=== PATIENT | female | born 1995 | race Caucasian/White ===

== ENCOUNTER → 2019-04-13 17:07 | Outpatient (CLI) | payer OTHER, MEDICAID, SELFPAY | DX: Z23 Encounter for immunization (principal) | CPT/HCPCS: 90471; 90686 ==

== ENCOUNTER → 2019-04-29 09:36 | Outpatient (CLI) | payer OTHER, MEDICAID, SELFPAY ==
[2019-04-29 10:42] LABS: Hemoglobin 13.9 g/dL (12.0-16.0); Mean Corpuscular HGB Conc 33.8 % (30-36); Mean Corpuscular Hemoglobin 30.4 PG (26-34); Mean Corpuscular Volume 89.9 fL (80-100); Platelet Count 225 X10^3/uL (150-400); Red Blood Cell Count 4.56 X10^6/uL (4.0-5.2); Red Cell Distribution Width 13.3 % (11.6-14.8); White Blood Cell Count 4.4 X10^3/uL (4.5-11.0)
[2019-04-29 11:12] LABS: Alanine Aminotransferase 25 IU/L (<35); Albumin 4.6 g/dL (3.5-5.0); Albumin Globulin Ratio 1.7 (1.0-2.8); Alkaline Phosphatase 61 U/L (38-126); Aspartate Aminotransferase 25 IU/L (14-36); BUN Creatinine Ratio 15.7 (6-22); Bilirubin Total 0.8 mg/dL (0.2-1.3); Blood Urea Nitrogen 11 mg/dL (7-17); Calcium 9.9 mg/dL (8.4-10.2); Carbon Dioxide 24 mmol/L (22-32); Chloride 110 mmol/L (98-107); Cholesterol 161 mg/dL (140-199); Estimated Glomerular Filt Rate > 60.0 mL/min (>60); Globulin 2.7 g/dL (1.7-4.1); Glucose 97 mg/dL (70-100); HDL Cholesterol 61 mg/dL (40-60); HEMOLYSIS < 15 (0-50); LDL Cholesterol Calculated 87 mg/dL (<100); Sodium 142 mmol/L (137-145); Total Protein 7.3 g/dL (6.3-8.2); Triglycerides 63 mg/dL (35-150)
[2019-04-29 11:13] LABS: Potassium 5.4 mmol/L (3.4-5.1)
== END ==
PROVIDERS: PCP Nurse Practitioner Family; Visit Provider Nurse Practitioner Family
DX: Z00.00 Encounter for general adult medical examination without abnormal findings (principal); Z13.6 Encounter for screening for cardiovascular disorders
CPT/HCPCS: 36415; 80053; 80061; 85027

== ENCOUNTER → 2019-08-01 12:35 | Outpatient (CLI) | payer OTHER, MEDICAID, SELFPAY ==
[2019-08-13 08:16] LABS: Rubella Antibody IgG 5.3 IU/mL (>15)
== END ==
PROVIDERS: PCP Nurse Practitioner Family; Referring Provider Obstetrics & Gynecology; Visit Provider Obstetrics & Gynecology
DX: Z00.00 Encounter for general adult medical examination without abnormal findings (principal)
CPT/HCPCS: 36415; 86762; 86765; 86787

== ENCOUNTER → 2019-12-23 09:45 | Outpatient (CLI) | payer OTHER, MEDICAID, SELFPAY ==
[2019-12-25 08:17] LABS: COVID19 Sendout Not Detected (Not Detect)
== END ==
PROVIDERS: PCP Nurse Practitioner Family; Visit Provider Physician Assistant
DX: Z11.59 Encounter for screening for other viral diseases (principal); J02.9 Acute pharyngitis, unspecified; R05 Cough
CPT/HCPCS: 87635

== ENCOUNTER → 2020-03-02 09:39 | Outpatient (CLI) | payer OTHER, MEDICAID, SELFPAY ==
[2020-03-03 14:36] LABS: COVID19 Sendout Not Detected (Not Detect)
== END ==
PROVIDERS: PCP Nurse Practitioner Family; Visit Provider Physician Assistant
DX: Z11.59 Encounter for screening for other viral diseases (principal); R06.02 Shortness of breath
CPT/HCPCS: 87635

== ENCOUNTER → 2020-03-02 09:55 | Outpatient (CLI) | payer OTHER, MEDICAID, SELFPAY ==
--- NOTE | 2020-03-02 10:00 | DI.RAD.S_ITS ---
PROCEDURE: XR CHEST 2V INDICATIONS: Short of breath, [place], recent cold TECHNIQUE: 2 views of the chest were acquired. COMPARISON: None. FINDINGS: Surgical changes and devices: None. Lungs and pleura: Lungs are clear. No pleural effusions or pneumothorax. Mediastinum: Mediastinal contours are normal. Heart size is normal. Bones and chest wall: No suspicious bony abnormalities. Soft tissues appear unremarkable. IMPRESSION: Normal chest, without infiltrates. Dictated by: Elier Singh M.D. on 03/02/2020 at 9:12 Approved by: Elier Singh M.D. on 03/02/2020 at 9:14
== END ==
PROVIDERS: PCP Nurse Practitioner Family; Referring Provider Physician Assistant; Visit Provider Physician Assistant
DX: R06.02 Shortness of breath (principal)
CPT/HCPCS: 71046; 87635

== ENCOUNTER → 2020-03-08 07:46 | Outpatient (CLI) | payer OTHER, MEDICAID, SELFPAY | PROVIDERS: PCP Nurse Practitioner Family; Referring Provider Internal Medicine; Visit Provider Internal Medicine | DX: Z23 Encounter for immunization (principal) | CPT/HCPCS: 90471; 90686 ==

== ENCOUNTER → 2020-03-11 09:10 | Outpatient (CLI) | payer OTHER, MEDICAID, SELFPAY ==
[2020-03-11 09:52] LABS: Hematocrit 39.8 % (36-46); Hemoglobin 13.4 g/dL (12.0-16.0); Mean Corpuscular HGB Conc 33.6 % (30-36); Mean Corpuscular Hemoglobin 30.6 PG (26-34); Platelet Count 219 X10^3/uL (150-400); Red Blood Cell Count 4.37 X10^6/uL (4.0-5.2); Red Cell Distribution Width 13.3 % (11.6-14.8); White Blood Cell Count 4.1 X10^3/uL (4.5-11.0)
[2020-03-11 10:17] LABS: Alanine Aminotransferase 15 IU/L (<35); Albumin 4.3 g/dL (3.5-5.0); Albumin Globulin Ratio 1.4 (1.0-2.8); Alkaline Phosphatase 61 U/L (38-126); Aspartate Aminotransferase 26 IU/L (14-36); BUN Creatinine Ratio 18.8 (6-22); Bilirubin Total 1.1 mg/dL (0.2-1.3); Blood Urea Nitrogen 12 mg/dL (7-17); Calcium 9.1 mg/dL (8.4-10.2); Carbon Dioxide 26 mmol/L (22-32); Chloride 108 mmol/L (98-107); Estimated Glomerular Filt Rate > 60.0 mL/min (>60); Globulin 3.1 g/dL (1.7-4.1); Glucose 93 mg/dL (70-100); HEMOLYSIS < 15 (0-50); Potassium 4.1 mmol/L (3.4-5.1); Sodium 138 mmol/L (137-145); Total Protein 7.4 g/dL (6.3-8.2)
== END ==
PROVIDERS: PCP Nurse Practitioner Family; Referring Provider Nurse Practitioner Family; Visit Provider Nurse Practitioner Family
DX: R06.02 Shortness of breath (principal)
CPT/HCPCS: 36415; 80053; 85027

== ENCOUNTER → 2020-04-07 09:43 | Outpatient (CLI) | payer OTHER, MEDICAID, SELFPAY ==
[2020-04-07 10:46] LABS: COVID19 -Nasal RAPID Negative (Negative)
== END ==
PROVIDERS: PCP Nurse Practitioner Family; Referring Provider Nurse Practitioner Family; Visit Provider Nurse Practitioner Family
DX: R06.02 Shortness of breath (principal)
CPT/HCPCS: 87635

== ENCOUNTER → 2020-04-08 06:45 | Outpatient (CLI) | payer OTHER, MEDICAID, SELFPAY ==
--- NOTE | 2020-04-13 09:10 | PM.PFT.1 ---
Pulmonary Function Test Referral & Results Date Patient Seen: 04/08/20 Requesting provider: Fran Chanel Results: The spirometry demonstrates an FVC of 4.03 L which is 109% of predicted. The FEV1 was measured at 3.40 L which is 108% of predicted. The FEV1/FVC ratio was 84 which is 99% of predicted. Following the administration of bronchodilator there was a 14% improvement in FEF 25-75%. Lung volumes show an SVC of 3.99 L which is 109% of predicted. The diffusing capacity was measured at 24.52 which is 107% of predicted. The maximum voluntary ventilation was normal Interpretation: This study demonstrates normal pulmonary function
== END ==
PROVIDERS: PCP Nurse Practitioner Family; Referring Provider Nurse Practitioner Family; Visit Provider Nurse Practitioner Family
DX: R06.02 Shortness of breath (principal); Z87.891 Personal history of nicotine dependence
CPT/HCPCS: 94060; 94726; 94729

== ENCOUNTER → 2020-04-12 11:45 | Outpatient (ROUT) | payer OTHER, MEDICAID, SELFPAY ==
[2020-04-12 12:04] LABS: COVID19 -Nasal RAPID Negative (Negative)
== END ==
PROVIDERS: PCP Nurse Practitioner Family; Visit Provider Nurse Practitioner
DX: Z11.59 Encounter for screening for other viral diseases (principal)
CPT/HCPCS: 87635

== ENCOUNTER → 2020-04-19 08:16 | Outpatient (CLI) | payer OTHER, MEDICAID, SELFPAY ==
[2020-04-19 08:51] LABS: COVID19 -Nasal RAPID POSITIVE (Negative)
== END ==
PROVIDERS: PCP Nurse Practitioner Family; Visit Provider Physician Assistant
DX: U07.1 COVID-19 (principal)
CPT/HCPCS: 87635

== ENCOUNTER → 2020-05-23 12:51 | Outpatient (CLI) | payer OTHER, MEDICAID, SELFPAY ==
--- NOTE | 2020-05-23 14:54 | DI.ECHO.S_ITS ---
[place] [facility]---------+ [facility] +---------+ : : [address] : : : : [id number] : : : : Phone: [phone]+ Echocardiogram Report + + :Name: BRONSON BECKFORD Study Date: 05/23/2020 Height: 63 in : :[facility] Weight: 130 lb : : Gender: Female BSA: 1.6 m2 : :: 1995 Age: 25 yrs BP: 124/92 mmHg: :Reason For Study: SOB WITH EXERTION, PFTS NORMAL : :Ordering Physician: DILEEP, : :GUS Performed By: Giovanna Gonzalez : :Referring: GUS FALK : + + Interpretation Summary The ejection fraction is estimated to be 60-65%. There is no significant valvular heart disease. Procedure: A two-dimensional transthoracic echocardiogram with color flow and Doppler was performed. The study quality was technically adequate. There is no prior echocardiogram noted for this patient. The patient was in sinus rhythm with heart rates between 74-96 bpm during the exam. Left Ventricle: The left ventricle is normal in size and wall thickness. The ejection fraction is estimated to be 60-65%. Left ventricular wall motion is normal. Diastolic parameters suggest probable normal left ventricular diastolic function and normal filling pressures. Right Ventricle: The right ventricle is normal in size and function. Atria: The left atrial size is normal. Right atrial size is normal. There is no Doppler evidence for an interatrial shunt. Mitral Valve: The mitral valve is normal in structure and function. There is trace mitral regurgitation. Aortic Valve: The aortic valve is trileaflet. The aortic valve opens well. There is no aortic valve stenosis. No aortic regurgitation is present. Tricuspid Valve: The tricuspid valve is normal in structure and function. There is trace tricuspid regurgitation. Pulmonary artery pressures cannot be estimated because of the lack of a measurable TR jet velocity but the IVC suggests a CVP of around 3 mmHg. Pulmonic Valve: The pulmonic valve leaflets are thin and pliable; valve motion is normal. There is no pulmonic valvular regurgitation. Great Vessels: The aortic root is normal size. The dimensions of the ascending aorta are normal. The IVC is of normal diameter and collapses greater than 50% with a sniff. This suggests a low right atrial pressure of 3 mm Hg. Pericardium/ Pleura There is no pericardial effusion. There is no pleural effusion. MMode/2D Measurements & Calculations LVIDd: 4.1 cm LVOT diam: 2.0 cm LVIDs: 3.0 cm Ao root diam: 2.7 cm FS: 26.9 % asc Aorta Diam: 2.7 cm EPSS: 0.64 cm Ao Arch Diam (Prox Trans): 2.0 cm IVSd: 0.68 cm LVPWd: 0.67 cm LV marte. diameter/BSA (cm/m^2): 2.5 LV sys. diameter/BSA (cm/m^2): 1.9 LA A2 area: 14.0 cm2 RA long axis: 3.8 cm LA A4 area: 14.1 cm2 RA area: 11.1 cm2 LA length (vol): 4.5 cm RA vol: 27.6 ml LA vol: 37.4 ml RA : 17.1 ml/m2 LA vol index: 23.2 ml/m2 IVC diam: 0.80 cm RVD1 (basal): 3.6 cm TAPSE: 2.1 cm Doppler Measurements & Calculations Ao V2 max: 109.5 cm/sec LVOT Max Benjamin: 91.4 cm/sec Ao V2 mean: 77.0 cm/sec LV V1 max P.3 mmHg Ao max P.8 mmHg LV V1 VTI: 20.3 cm Ao mean P.7 mmHg SUSHILA(I,D): 2.6 cm2 Ao V2 VTI: 24.6 cm SUSHILA(V,D): 2.6 cm2 sev ratio: 0.82 SUSHILA indexed to BSA (cm^2/m^2): 1.6 MV E max benjamin: 93.4 cm/sec PA V2 max: 64.4 cm/sec MV A max benjamin: 77.2 cm/sec PA V2 mean: 44.7 cm/sec MV E/A: 1.2 PA mean P.90 mmHg Med Peak E' Benjamin: 13.0 cm/sec PA pr(Accel): 13.9 mmHg E/E' med: 7.2 Lat Peak E' Benjamin: 14.3 cm/sec E/E' lat: 6.5 E/e' average: 6.8 MV dec time: 0.15 sec SV([facility]): 62.8 ml Reading Physician:01:18 PM
== END ==
PROVIDERS: PCP Nurse Practitioner Family; Referring Provider Nurse Practitioner Family; Visit Provider Nurse Practitioner Family
DX: R06.02 Shortness of breath (principal)
CPT/HCPCS: 93306

== ENCOUNTER → 2020-06-06 14:16 | Outpatient (CLI) | payer OTHER, MEDICAID, SELFPAY ==
--- NOTE | 2020-07-01 16:48 | PM.CARDMON.1 ---
Manager Simulation Report Referral & Results Date Patient Seen: 06/06/20 Requesting provider: Fran Chanel Indication: Shortness of breath Duration of monitoring (days): 14 Diary information: There were 6 patient triggered events and 6 patient diary entries. All of these events were associated with sinus rhythm only Data: Minimum heart rate identified is 55 beats per minute at 09:01 on 01/09/2021 Maximum heart rate was 180 beats per minute at 16:29 on 06/18/2020 Less than 1 % of identified beats rather ventricular, or supraventricular ectopic in origin There was 1 run of nonsustained monomorphic ventricular tachycardia lasting 5 beats at a rate of 140 beats per minute. Impression: 14 day cardiac rehab nurse showing only 1 run very brief nonsustained ventricular tachycardia otherwise entirely normal No etiology for symptoms shortness of breath identified on this study
== END ==
PROVIDERS: PCP Nurse Practitioner Family; Referring Provider Nurse Practitioner Family; Visit Provider Nurse Practitioner Family
DX: R06.02 Shortness of breath (principal); R07.89 Other chest pain
CPT/HCPCS: 93246; 93248

== ENCOUNTER → 2020-07-18 15:04 | Outpatient (CLI) | payer OTHER, MEDICAID, SELFPAY ==
[2020-07-18 16:33] LABS: Progesterone, Total 9.12 ng/mL
== END ==
PROVIDERS: PCP Nurse Practitioner Family; Referring Provider Obstetrics & Gynecology; Visit Provider Obstetrics & Gynecology
DX: N97.0 Female infertility associated with anovulation (principal)
CPT/HCPCS: 36415; 84144

== ENCOUNTER → 2020-08-31 14:44 | Outpatient (CLI) | payer OTHER, MEDICAID, SELFPAY ==
[2020-08-31 17:00] LABS: Thyroid Stimulating Hormone 0.977 uIU/mL (0.47-4.68)
== END ==
PROVIDERS: PCP Nurse Practitioner Family; Referring Provider Obstetrics & Gynecology; Visit Provider Obstetrics & Gynecology
DX: N97.9 Female infertility, unspecified (principal)
CPT/HCPCS: 36415; 83001; 83002; 84439; 84443

== ENCOUNTER → 2020-09-16 11:50 | Outpatient (CLI) | payer OTHER, MEDICAID, SELFPAY ==
[2020-09-16 13:05] LABS: HCG Quantitative /Beta subunit < 2.4 mIU/mL
== END ==
PROVIDERS: PCP Nurse Practitioner Family; Referring Provider Obstetrics & Gynecology; Visit Provider Obstetrics & Gynecology
DX: N93.9 Abnormal uterine and vaginal bleeding, unspecified (principal)
CPT/HCPCS: 36415; 84702

== ENCOUNTER → 2021-03-02 | Outpatient (CLI) | payer OTHER, MEDICAID, SELFPAY | PROVIDERS: PCP Nurse Practitioner Family; Referring Provider Internal Medicine; Visit Provider Internal Medicine | DX: Z23 Encounter for immunization (principal) | CPT/HCPCS: 90471; 90686 ==

== ENCOUNTER → 2021-04-27 07:14 | Outpatient (CLI) | payer OTHER, MEDICAID, SELFPAY ==
--- NOTE | 2021-04-27 07:14 | DI.US.S_ITS ---
ULTRASOUND OF RIGHT AXILLA: 04/27/2021 CLINICAL: Palpable right axilla lump. No prior exams were available for comparison. Real-time ultrasound of the right axilla was performed on the area of interest. No discrete cystic or solid mass lesion identified in the area of palpable abnormality. No suspicious enlarged lymph nodes were seen sonographically in the right axilla. IMPRESSION: NEGATIVE There is no sonographic evidence of malignancy. There is no abnormality seen in the right axilla to correspond with the palpable abnormality, however, clinical followup is recommended. This exam was interpreted at Station ID: [id number]. Electronically Signed By: Damion Crain M.D. ddp/:04/27/2021 08:12:58 letter sent: Clinical Evaluation Ultrasound BI-RADS: 1 Negative
== END ==
PROVIDERS: PCP Nurse Practitioner Family; Referring Provider Nurse Practitioner Family; Visit Provider Nurse Practitioner Family
DX: R22.30 Localized swelling, mass and lump, unspecified upper limb (principal)
CPT/HCPCS: 76882

== ENCOUNTER → 2021-05-12 11:03 | Outpatient (CLI) | payer OTHER, MEDICAID, SELFPAY ==
--- NOTE | 2021-05-12 11:04 | DI.CT.S_ITS ---
PROCEDURE: CT UE RT W CON INDICATIONS: Right mass muscle post axillary fold (latissimus? near attachment) TECHNIQUE: After the administration of intravenous contrast, 3 mm axial sections acquired of the right shoulder, with oblique coronal and oblique sagittal reformats. COMPARISON: [facility], , AXILLARY ONLY RT, 04/27/2021, 7:43. FINDINGS: Image quality: Excellent. Bones: No acute fracture or dislocation. The glenohumeral and acromioclavicular joints are normally aligned. The visualized ribs are intact. Soft tissues: A skin marker is seen at the posterior axilla overlying the teres major and latissimus dorsi musculature. No enhancing soft tissue mass is seen. No definite circumscribed lipoma is identified. No bulky axillary lymphadenopathy. The musculature surrounding the shoulder is normal in bulk. The tendons, ligaments, articular cartilages, and labrum are not well visualized on standard unenhanced CT. The included portions of the right lung are clear. IMPRESSION: No enhancing mass or suspicious abnormality is seen at the area of interest in the posterior axillary region. No axillary lymphadenopathy. Dictated by: Lucius Morton M.D. on 05/12/2021 at 11:45 Approved by: Lucius Morton M.D. on 05/12/2021 at 11:51
== END ==
PROVIDERS: PCP Nurse Practitioner Family; Referring Provider Specialist; Visit Provider Specialist
DX: M62.89 Other specified disorders of muscle (principal)
CPT/HCPCS: 73201

== ENCOUNTER → 2021-05-31 09:12 | Outpatient (CLI) | payer OTHER, MEDICAID, SELFPAY ==
[2021-05-31 10:11] LABS: Hemoglobin 12.7 g/dL (12.0-16.0); Mean Corpuscular HGB Conc 33.5 % (30-36); Mean Corpuscular Hemoglobin 29.7 PG (26-34); Mean Corpuscular Volume 88.5 fL (80-100); Platelet Count 230 X10^3/uL (150-400); Red Cell Distribution Width 14.2 % (11.6-14.8); White Blood Cell Count 3.9 X10^3/uL (4.5-11.0)
[2021-05-31 11:07] LABS: Alanine Aminotransferase 15 IU/L (<35); Albumin 4.3 g/dL (3.5-5.0); Albumin Globulin Ratio 1.4 (1.0-2.8); Alkaline Phosphatase 53 U/L (38-126); Aspartate Aminotransferase 21 IU/L (14-36); BUN Creatinine Ratio 21.2 (6-22); Bilirubin Total 0.6 mg/dL (0.2-1.3); Blood Urea Nitrogen 14 mg/dL (7-17); Calcium 9.4 mg/dL (8.4-10.2); Carbon Dioxide 26 mmol/L (22-32); Chloride 107 mmol/L (98-107); Cholesterol 157 mg/dL (140-199); Estimated Glomerular Filt Rate > 60.0 mL/min (>60); Glucose 95 mg/dL (70-100); HDL Cholesterol 67 mg/dL (40-60); HEMOLYSIS < 15 (0-50); LDL Cholesterol Calculated 81 mg/dL (<100); Potassium 4.8 mmol/L (3.4-5.1); Sodium 138 mmol/L (137-145); Total Protein 7.3 g/dL (6.3-8.2); Triglycerides 45 mg/dL (35-150)
[2021-05-31 11:35] LABS: TSH w/ Reflex to FT4 1.02 uIU/mL (0.47-4.68)
== END ==
PROVIDERS: PCP Nurse Practitioner Family; Referring Provider Nurse Practitioner Family; Visit Provider Nurse Practitioner Family
DX: F32.1 Major depressive disorder, single episode, moderate (principal); Z00.00 Encounter for general adult medical examination without abnormal findings; Z13.6 Encounter for screening for cardiovascular disorders
CPT/HCPCS: 36415; 80053; 80061; 84443; 85027

== ENCOUNTER → 2021-06-01 07:18 | Outpatient (CLI) | payer OTHER, MEDICAID, SELFPAY ==
--- NOTE | 2021-06-01 07:20 | DI.MRI.S_ITS ---
PROCEDURE: MR CHEST WO/W CON INDICATIONS: Right lateral axillary mass TECHNIQUE: Axial 2-D FLASH in- and [id number], axial breath-hold T2 FSE, axial STIR FSE. Optional contrast may be given, followed by axial 2-D FLASH with fat saturation acquired over the lesion of concern. COMPARISON: [facility], US, US AXILLARY ONLY RT, 04/27/2021, 7:43. FINDINGS: Image quality: Excellent. Region of interest: No abnormal subcutaneous or intramuscular cysts or masses in the axillary area indicated. Subtle enhancement and edema of the dermal layer anterior to the marker, potentially from shaving. There is no suspicious adenopathy. Bones: Nearby osseous structures demonstrate normal overall marrow signal. IMPRESSION: No MR evidence of suspicious finding in the right axilla. Dictated by: aBrbara Ellsworth M.D. on 06/01/2021 at 11:43 Approved by: Barbara Ellsworth M.D. on 06/01/2021 at 11:54
== END ==
PROVIDERS: PCP Nurse Practitioner Family; Referring Provider Surgery; Visit Provider Surgery
DX: M62.89 Other specified disorders of muscle (principal)
CPT/HCPCS: 71552; A9579

== ENCOUNTER → 2021-06-28 09:16 | Outpatient (CLI) | payer OTHER, MEDICAID, SELFPAY ==
[2021-06-28 09:38] LABS: COVID19 -Nasal RAPID Negative (Negative)
== END ==
PROVIDERS: PCP Nurse Practitioner Family; Visit Provider Surgery
DX: Z01.812 Encounter for preprocedural laboratory examination (principal); Z20.822 Contact with and (suspected) exposure to COVID-19
CPT/HCPCS: 87635; C9803

== ENCOUNTER 2021-06-29 08:20 | Day surgery (SDC) | payer OTHER, MEDICAID, SELFPAY ==
[2021-06-28 10:22] VITALS: BMI 25.4
[2021-06-29] VITALS (8 sets, daily range): BP systolic 109–124; BP diastolic 65–81; PULSE 80–96; RESP 16; TEMP 36.1–36.7; O2SAT 98–100; BMI 25.4
--- NOTE | 2021-06-29 | PATH_ITS ---
[facility] Accession Number: [id number] No. of containers..01 Tissue . 01 Material submitted: . axilla - RIGHT AXILLARY CONTENTS . 02 Diagnosis: Right Axillary Contents, Excision: Mature adipose tissue. Please see comment. No evidence of atypia or malignancy. MRV 07/04/2021 0953 Local . 02 Comment: The clinical history of a palpable mass is noted. The morphologic appearance could be compatible with a benign lipoma in the appropriate clinical and radiologic setting. There is no evidence of ductal or lobular breast tissue in the sections examined. . 02 Electronically signed: . Jo-Ann Babb MD, Pathologist NPI- [id number] . 01 Gross description: . Received in formalin, labeled with the patient's name and right axillary contents is a 3-gram, 2.4 x 2.0 x 0.5 cm partially encapsulated fragment of yellow-veronica lobulated fatty soft tissue, inked green, homogeneously fatty surface, sectioned and entirely submitted. . Summary of Sections: A1-A2. Four pieces each. ([id number]) /MRV 06/30/2021 1424 Local . 02 Pathologist provided ICD-10: R22.31 . 02 CPT . 328256 Performed at: 01 [facility] [address], [place], [place] [id number] MD Damion Lewis MD Phone: [phone] Performed at: 02 [facility] [address] [place], [place] [id number] MD Jo-Ann Babb MD Phone: [phone]
[2021-06-29] MEDS: ACETAMINOPHEN 325 MG TABLET 650 MG PO (08:46)
[2021-06-29] MEDS: LACTATED RINGERS 1,000 ML 42 ML IV (09:04)
--- NOTE | 2021-06-29 09:28 | P.HP_ITS ---
History of Present Illness History of Present Illness Date Patient Seen: 06/29/21 Time Patient Seen: 09:28 Chief complaint: [facility] Narrative: 26-year-old woman who noticed a right axillary mass about a year ago. She has been worked up and had an ultrasound, MRI and CT scan all of which showed no evidence of a mass. The mass is definitely palpable and has gotten bigger recently. It is occasionally tender. Patient History Medical History (Updated 06/22/21 @ 08:35 by Sallie Mendosa RN) Headache Shortness of breath Surgical History (Updated 06/22/21 @ 08:35 by Sallie Mendosa RN) No history of previous surgery [place] teeth extracted Family & Social History Family History Father Hypertension Mother Hypertension Social History: household members significant other Tobacco & Substance use: Smoking Status Former smoker alcohol intake current alcohol intake frequency a few times a month Substance Use Type does not use Meds Home Medications and Allergies Home Medications Medication Instructions Recorded Confirmed Type fluticasone propionate 44 1 puff INHALATION BID #10.6 gram 03/10/20 06/29/21 Rx mcg/actuation HFA aerosol inhaler (Flovent HFA) montelukast 10 mg tablet 10 mg PO DAILY #60 tab 03/10/20 06/22/21 Rx albuterol sulfate 90 mcg/actuation 2 puff INHALATION Q4-6H PRN #8.5 10/31/20 06/29/21 Rx aerosol inhaler gram Allergies Allergy/AdvReac Type Severity Reaction Status Date / Time No Known Drug Allergies Allergy Verified 06/06/21 15:39 Exam Vital Signs (past 8 hours): - 06/29/21 08:47 Temperature 98.1 F Pulse Rate 96 H Respiratory Rate 16 Blood Pressure 124/81 Pulse Oximetry 98 Oxygen Delivery Method Room Air Narrative Exam Narrative: Palpable right axillary mass roughly 4 cm incised Assessment & Plan Assessment and plan (1) Mass of right axilla: Status: Acute Plan Mass of unclear significance in the right axilla. It causes her anxiety. This could be lymphadenopathy or possibly the dermal conditions such as hidradenitis. Will proceed with exploration in the operating room and excision of the mass. She understands the risks and benefits and wishes to proceed. COVID-19 COVID-19 status: Negative Result date/Date tested (Pos, Neg/Pending): 06/29/21 Time Spent With Patient Critical Care time: I spent a total of [] minutes of critical care time on this patient's care today; this time is exclusive of procedural time.
[2021-06-29] MEDS: CEFAZOLIN 2 GM/20 ML SYRINGE IV (10:07)
--- NOTE | 2021-06-29 10:28 | SUR.OPER ---
Addendum entered by Thuy Schumacher R.N. 06/29/21 10:31: Patient unable to remove 3 piercings from her right ear. Original Note: Supine on padded OR bed, head on pillow, right arm secured on padded arm boards at <90 degrees abduction, Right arm on large padded arm board extension and in control of the surgeon. legs uncrossed, safety belt at thigh, tape over blanket over lower legs. Gel pad under bilateral heels. Warm blankets placed.
[2021-06-29] MEDS: EPINEPHrine 1 MG/ML 0.2 MG INJ (10:39)
[2021-06-29] MEDS: BUPIVACAINE 0.5% (PF) VIAL 30 ML INJ (10:39)
[2021-06-29] MEDS: LIDOCAINE 1% 20 ML INJ (10:40)
--- NOTE | 2021-06-29 11:10 | PM.OP.1 ---
Operative Date/Time/Diagnoses Date of procedure: 06/29/21 Time of procedure: 11:13 Pre-op diagnosis: Right axillary mass Post-op diagnosis: same Procedure & Clinicians Procedure: Excisional biopsy of right axillary mass Same procedure as scheduled: Yes Surgeon: Lester White Anesthesia Type: General Operative Notes Findings: No distinct mass Procedure in detail: The patient was brought to the operating room and placed on the table in the supine position. General anesthesia was induced via LMA. The right arm was placed on an arm board and the right axilla was prepped and draped in the usual fashion. A time-out was performed. We made a 6 cm transverse incision at the hairline. The mass was not in the dermis. We dissected through the superficial axillary tissue and entered the axilla. There were no obvious masses or enlarged lymph nodes. Dissection was carried out along the lateral border of the pectoralis minor. Some superficial axillary contents were removed and sent. There was fullness in the deep axillary contents but no discrete mass was palpated. We injected some Marcaine into the deep layers and closed the incision in layers using 3-0 Vicryl dermal sutures in an interrupted fashion and a running 4 Monocryl subcuticular closure. Steri-Strips were applied. 4 x 4 was applied. Patient was awakened and brought to recovery room. Post-operative Condition: stable Disposition: PACU
--- NOTE | 2021-06-29 12:27 | SUR.PHASEII ---
1220-Pt A&O, denies pain or nausea, upon receiving pt at 1150 pt sitting up drinking juice without problems, VSS, dressing now and before clean D&I. 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 Up and ambulating at noon gait steady, to br and voiding without problems, dressed now and ready to go. Pt dcd in stable condition with all belongings and out via wc to curbside private vehicle and significant other in good spirits. 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
== END 2021-06-29 12:20 | disposition home or self-care (01) ==
PROVIDERS: PCP Nurse Practitioner Family; Referring Provider Surgery; Visit Provider Surgery
PROC: (CPT 21550; principal; 2021-06-29 10:15)
DX: R22.2 Localized swelling, mass and lump, trunk (principal)
CPT/HCPCS: 21550; J0171; J0690; J1100; J2250; J2405; J2704; J3010

== ENCOUNTER → 2021-07-04 11:22 | Outpatient (CLI) | payer OTHER, MEDICAID, SELFPAY ==
--- NOTE | 2021-07-04 11:25 | DI.RAD.S_ITS ---
PROCEDURE: XR FINGER LT MIN 2V INDICATIONS: left pinky finger injury TECHNIQUE: AP hand, 2 views of the 5th finger(s) acquired. COMPARISON: None. FINDINGS: Bones: No fractures or dislocations. No suspicious bony lesions. Soft tissues: No suspicious soft tissue calcifications. IMPRESSION: No acute fracture. No osseous lesion. If symptoms and/or clinical suspicion for pathology persist, further assessment with repeat, or advanced imaging (e.g., CT, MRI, or bone scan) may be helpful for further assessment. Dictated by: Hubert Martin M.D. on 07/04/2021 at 12:38 Approved by: Hubert Martin M.D. on 07/04/2021 at 12:39
== END ==
PROVIDERS: PCP Nurse Practitioner Family; Referring Provider Nurse Practitioner Family; Visit Provider Nurse Practitioner Family
DX: S69.92XA Unspecified injury of left wrist, hand and finger(s), initial encounter (principal); X58.XXXA Exposure to other specified factors, initial encounter
CPT/HCPCS: 73140

== ENCOUNTER → 2021-08-04 09:44 | Outpatient (CLI) | payer OTHER, MEDICAID, SELFPAY ==
--- NOTE | 2021-08-04 09:47 | DI.US.S_ITS ---
ULTRASOUND OF RIGHT BREAST: 08/04/2021 CLINICAL: Palpable right axilla lump. Comparison is made to exam dated: 04/27/2021 [facility]. Color flow ultrasound of the right breast was performed. Lovell scale images of the real-time examination were reviewed. No abnormality which corresponds with the palpable abnormality is seen. IMPRESSION: NEGATIVE There is no sonographic evidence of malignancy. There is no abnormality seen in the right axilla to correspond with the area of clinical concern in the right axilla, however, clinical followup is recommended. Follow-up with ACR/ACS guidelines. This exam was interpreted at Station ID: [id number]. Electronically Signed By: Fidel Guerin acr/:08/04/2021 10:56:42 letter sent: Clinical Evaluation Ultrasound BI-RADS: 1 Negative
== END ==
PROVIDERS: PCP Nurse Practitioner Family; Referring Provider Surgery; Visit Provider Surgery
DX: N63.31 Unspecified lump in axillary tail of the right breast (principal)
CPT/HCPCS: 76882

== ENCOUNTER → 2021-08-10 07:40 | Outpatient (CLI) | payer OTHER, MEDICAID, SELFPAY ==
--- NOTE | 2021-08-10 07:42 | DI.MG.S_ITS ---
UNILATERAL RIGHT DIGITAL DIAGNOSTIC MAMMOGRAM 3D/2D: 08/10/2021 CLINICAL: Palpable mass in the right axilla. Patient reports excisional biopsy witih negative pathology. No abnormal findings on prior ultrasound evaluation. No abnormalities seen on CT of the right upper extremity dated 05/12/2021 or MRI dated 06/01/2021. Comparison is made to exams dated: 08/04/2021 ultrasound and 04/27/2021 [facility]. The tissue of right breast is extremely dense, which lowers the sensitivity of mammography. No significant masses, calcifications, or other findings are seen in the breast. IMPRESSION: NEGATIVE There is no abnormality seen in the right axilla to correspond with the area of clinical concern and palpable abnormality in the right axilla, however, recommend clinical follow up for persistent or worsening symptoms, or development of any clinically suspicious findings. There is no mammographic evidence of malignancy. Recommend initiating routine screening mammograms at age 40. Findings and recommendations were conveyed to the patient during today's evaluation. This exam was interpreted at Station ID: [id number]. NOTE: For mammograms, a report in lay terms will be sent to the patient. Approximately 15% of breast malignancies will not be visualized mammographically. In the management of a palpable breast mass, a negative mammogram must not discourage biopsy of a clinically suspicious lesion. Electronically Signed By: Valdemar hO M.D. aty/:08/10/2021 10:00:40 letter sent: Clinical Evaluation ACR BI-RADS Category 1: Negative [id number]
== END ==
PROVIDERS: PCP Nurse Practitioner Family; Referring Provider Surgery; Visit Provider Surgery
DX: N63.31 Unspecified lump in axillary tail of the right breast (principal)
CPT/HCPCS: 77065; G0279